=== PATIENT | female | born 1965 | race Caucasian/White ===

== ENCOUNTER 2017-09-08 07:43 | Emergency (ER) | payer OTHER ==
[2017-09-08] MEDS ORDERED: Zofran 4 MG/2 ML VIAL IV ONE (08:10)
[2017-09-08] MEDS ORDERED: TORAdol 30 mg Injection IV ONE (08:10)
[2017-09-08] MEDS ORDERED: TORAdol 30 mg Injection ONE (08:15)
--- NOTE | 2017-09-08 08:17 | ERPHSYRPT ---
- History of Present Illness Time Seen by Provider: 09/08/17 08:07 Historian: patient Exam Limitations: no limitations Patient Subjective Stated Complaint: pain right lower abd since last night,pain worse with movement, no n/v. loose stools, fever on and off for 2 weeks due to a cold Triage Nursing Assessment: pt alert, walked in, guarding abd with boland in positon, resp easy, skin w/d pink Physician History: 51-year-old white female arrives with complaint of right lower quadrant abdominal pain worse with movement associated with loose stools no nausea no vomiting . Patient does state she's had a cough off and on for 2 weeks occasional fever. Past medical history includes asthma, endometriosis. Past surgical history includes tubal , hysterectomy and bladder repair Social history occasional alcohol Timing/Duration: yesterday Activities at Onset: none Quality: cramping Abdominal Pain Onset Location: RLQ Pain Radiation: RLQ, back Severity of Pain-Max: mild Severity of Pain-Current: mild Modifying Factors: Improves With: nothing, coughing (OCCASIONAL COUGH FOR 2 WEEKS). Worsens With: analgesics, antacids, breathing, defecating, eating, exercise, lying down, movement, palpation, rest, urinating, vomiting, position, walking Associated Symptoms: fever/chills (occasional fever off and on for 2 weeks), No back, No chest pain, No diaphoresis, No fatigue, No headache, No heartburn, No loss of appetite, No nausea, No neck pain, No rash, No shortness of breath, No syncope, No vomiting, No weakness Previous symptoms: no prior history Allergies/Adverse Reactions: morphine Allergy (Verified 09/08/17 08:01) Home Medications: Albuterol Sulfate [Albuterol Sulfate Hfa] 8.5 gm DAILY 09/08/17 [History] Docusate Sodium 100 mg [Colace 100 MG] 300 mg DAILY 09/08/17 [History] Naproxen 500 mg DAILY 09/08/17 [History] Hx Influenza Vaccination/Date Given: Yes Hx Pneumococcal Vaccination/Date Given: (2 years ago) Immunizations Up to Date: Yes - Review of Systems Constitutional: Fever (occasional fever off and on for 2 weeks), No Chills, No Fatigue, No Lethargy, No Malaise, No Night Sweats, No Weakness, No Weight Loss Eyes: No Symptoms Ears, Nose, & Throat: No Symptoms, No Ear Pain, No Ear Discharge, No Hearing Changes, No Tinnitus, No Nose Pain, No Nose Congestion, No Nose Discharge, No Sinus Drainage, No Epistaxis, No Mouth Pain, No Mouth Swelling, No Loose Teeth, No Throat Pain, No Throat Swelling, No Hoarse, No Painful Swallowing, No Snoring , No Stridor Respiratory: Cough, No Cyanosis, No Dyspnea, No Dyspnea on Exertion (FRANCISCO), No Stridor, No Wheezing Cardiac: No Symptoms Abdominal/Gastrointestinal: Abdominal Pain (Right lower quadrant abdominal pain) , Diarrhea, No Nausea, No Vomiting, No Constipation, No Hematemesis, No Hematochezia, No Melena, No Dysphagia, No Appetite Changes Genitourinary Symptoms: No Dysuria Musculoskeletal: No Back Pain, No Neck Pain Skin: No Rash Neurological: No Dizziness, No Focal Weakness, No Sensory Changes Psychological: No Symptoms Endocrine: No Symptoms All Other Systems: Reviewed and Negative - Past Medical History Pertinent Past Medical History: Yes Respiratory History: Asthma Female Reproductive Disorders: Endometriosis - Past Surgical History Past Surgical History: Yes Female Surgical History: Hysterectomy Other Surgical History: BLADDER REPAIR X2 , ADHESION REMOVAL X2 - Social History Smoking Status: Never smoker Exposure to second hand smoke: No Drug Use: none Patient Lives Alone: No - Female History Hx Last Menstrual Period: hyster Hx Now: No - Nursing Vital Signs Nursing Vital Signs: Initial Vital Signs Temperature 97.6 F 09/08/17 07:49 Pulse Rate 86 09/08/17 07:49 Respiratory Rate 18 09/08/17 07:49 Blood Pressure 160/84 09/08/17 07:49 O2 Sat by Pulse Oximetry 97 09/08/17 07:49 Pain Scale Pain Intensity 4 - Physical Exam General Appearance: mild distress Eye Exam: PERRL/EOMI, eyes nml inspection Ears, Nose, Throat Exam: normal ENT inspection, pharynx normal, moist mucous membranes Neck Exam: normal inspection, non-tender, supple, full range of motion Respiratory Exam: normal breath sounds, lungs clear, No respiratory distress Cardiovascular Exam: regular rate/rhythm, normal heart sounds, normal peripheral pulses Gastrointestinal/Abdomen Exam: soft, normal bowel sounds, tenderness (right lower quadrant tenderness), No distention, No mass, No guarding, No ecchymosis, No pulsatile mass, No rebound, No hernia, No hepatomegaly, No organomegaly, No splenomegaly Back Exam: normal inspection, normal range of motion, No CVA tenderness, No vertebral tenderness Extremity Exam: normal inspection, normal range of motion, pelvis stable Neurologic Exam: alert, oriented x 3, cooperative, leasing professional II-XII nml as tested, normal mood/affect, nml cerebellar function, sensation nml, No motor deficits Skin Exam: normal color, warm, dry SpO2 Interpretation: normal (97%) SpO2: 97 Oxygen Delivery: Room Air - Course Nursing assessment & vital signs reviewed: Yes - CT Exams Abdomen/Pelvis CT Interpretation: Tele-radiologist Report (CT abdomen and pelvis with contrast impression 1 mild hepatomegaly 2. Splenomegaly major differential considerations include pleural hypertension, infectious/inflammatory condition, hematologic diseases such as anemia an extra medullary hematopoiesis, neoplasia , storage disease and sequestation, portable or splenic vein thrombosis, also in the differential but not present in this case. Antecedent granulomatous disease) Ordered Tests: Active Orders 24 hr Category Date Time Status IV Insertion STAT Care 09/08/17 08:10 Active ABDOMEN AND PELVIS W CONTRAST [CT] Stat Exams 09/08/17 08:57 Taken AMYLASE Stat Lab 09/08/17 08:16 Completed CBC W DIFF Stat Lab 09/08/17 08:16 Completed CMP Stat Lab 09/08/17 08:16 Completed LIPASE Stat Lab 09/08/17 08:16 Completed UA W/ MICROSCOPIC Stat Lab 09/08/17 08:16 Completed Medication Summary Discontinued Medications Generic Name Dose Route Start Last Admin Trade Name Freq PRN Reason Stop Dose Admin Fentanyl Citrate 50 mcg 09/08/17 08:55 09/08/17 09:05 Sublimaze 100 Mcg/2 Ml IV 09/08/17 08:56 50 mcg STAT ONE Administration Fentanyl Citrate Confirm 09/08/17 09:04 Sublimaze 100 Mcg/2 Ml Administered 09/08/17 09:05 Dose 100 mcg .ROUTE .STK-MED ONE Ketorolac Tromethamine 30 mg 09/08/17 08:10 09/08/17 08:16 Toradol 30 Mg Injection IV 09/08/17 08:11 30 mg STAT ONE Administration Ketorolac Tromethamine Confirm 09/08/17 08:15 Toradol 30 Mg Injection Administered 12/10/17 08:16 Dose 30 mg .ROUTE .STK-MED ONE Ondansetron HCl 4 mg 09/08/17 08:10 09/08/17 08:16 Zofran 4 Mg/2 Ml Vial IV 09/08/17 08:11 Not Given STAT ONE Lab/Rad Data: Laboratory Result Diagrams 09/08/17 08:16 12 08:16 Laboratory Results 09/08/17 09/08/17 09/08/17 Range/Units 08:16 08:16 08:16 WBC 10.1 (4.0-10.5) K/mm3 RBC 5.03 (4.1-5.4) M/mm3 Hgb 14.1 (12.0-16.0) gm/dl Hct 43.1 (35-47) % MCV 85.7 (78-100) fl MCH 28.0 (26-32) pg MCHC 32.7 (32-36) g/dl RDW 15.5 H (11.5-14.0) % Plt Count 323 (150-450) K/mm3 MPV 9.8 H (6-9.5) fl Gran % 56.6 (36.0-66.0) % Lymphocytes % 32.1 (24.0-44.0) % Monocytes % 6.3 (0.0-12.0) % Eosinophils % 4.8 (0.00-5.0) % Basophils % 0.2 (0.0-0.4) % Basophils # 0.02 (0-0.4) Sodium 139 (136-145) mEq/L Potassium 3.9 (3.5-5.1) mEq/L Chloride 103 (98-107) mEq/L Carbon Dioxide 27.8 (21-32) mEq/L Anion Gap 11.8 (5-15) MEQ/L BUN 14 (9-20) mg/dL Creatinine 0.88 (0.55-1.30) mg/dl Estimated GFR > 60 ML/MIN Glucose 103 (70-110) MG/DL Calcium 9.4 (8.5-10.1) mg/dL Total Bilirubin 0.40 (0.2-1.0) mg/dL AST 16 (15-37) U/L ALT 34 (12-78) U/L Alkaline Phosphatase 91 (46-116) U/L Serum Total Protein 7.9 (6.4-8.2) gm/dL Albumin 4.1 (3.4-5.0) g/dL Amylase 35 (25-115) U/L Lipase 112 (73-393) U/L Ur Collection Type VOID Urine Color YELLOW (YELLOW) Urine Appearance SLIGHTLY HAZY (CLEAR) Urine pH 5.0 (5-6) Ur Specific [place] 1.020 (1.005-1.025) Urine Protein NEGATIVE (Negative) Urine Ketones NEGATIVE (NEGATIVE) Urine Blood 50 (0-5) Viktor/ul Urine Nitrite NEGATIVE (NEGATIVE) Urine Bilirubin NEGATIVE (NEGATIVE) Urine Urobilinogen NORMAL (0-1) mg/dL Ur Leukocyte Esterase NEGATIVE (NEGATIVE) Urine Microscopic RBC 2-5 (0-2) /HPF Urine Microscopic WBC 0-2 (0-5) /HPF Ur Epithelial Cells MODERATE (FEW) /HPF Urine Bacteria FEW (NEGATIVE) /HPF Urine Culture Reflexed NO (NO) Urine Glucose NEGATIVE (NEGATIVE) mg/dL Specimen Received 09/08/17 0811 - Progress Progress: improved Progress Note: 09/08/17 08:57 51-year-old white female with history of endometriosis arrives with complaint of right lower quadrant pain symptoms since yesterday. Patient has had some loose stools no vomiting. Patient with white count 10.12-5 red cells per high-power field in her urine. Patient states that morphine made her hallucinate she is given Toradol she states this really doesn't work for her. Patient was offered Benadryl she does not want this. Will try fentanyl. CT abdomen and pelvis with contrast is ordered. 09/08/17 10:[address] of the abdomen remarkable for splenomegaly and a mild hepatomegaly appendix is within normal limits Patient's labs are essentially normal. Patient improved with fentanyl Will give her a second dosage send her home on tramadol clear fluids. Patient will need to follow-up with Dr. So. - Departure Time of Disposition: 10:37 Departure Disposition: Home Clinical Impression: Splenomegaly Abdominal pain Qualifiers: Abdominal location: right lower quadrant Qualified Code(s): R10.31 - Right lower quadrant pain Condition: Fair Critical Care Time: No Referrals: POP SO [Primary Care Provider] - Instructions: Abdominal Pain-Adult Additional Instructions: Return home. Plenty of fluids. Clear fluids only 24-48 hours if abdominal pain. Tramadol 50 mg orally every 6 hours as needed for pain. Follow-up with your family doctor. Call tomorrow to arrange an appointment. Return for acute distress or for severe symptoms. Avoid heavy contact activities. Prescriptions: Tramadol HCl 50 mg [Ultram 50 mg] 50 mg PO Q6H PRN PRN #12 tablet PRN Reason: Pain
[2017-09-08 08:19] LABS: BASOPHIL % 0.2 % (0.0-0.4); Eosinophil % 4.8 % (0.00-5.0); Granulocytes % 56.6 % (36.0-66.0); Lymphocytes % 32.1 % (24.0-44.0); Mean Cell Volume 85.7 fl (78-100); Mean Platelet Volume 9.8 fl (6-9.5); Monocytes % 6.3 % (0.0-12.0); Platelet Count 323 K/mm3 (150-450); Red Blood Count 5.03 M/mm3 (4.1-5.4); Red Cell Distribution Width 15.5 % (11.5-14.0); White Blood Count 10.1 K/mm3 (4.0-10.5)
[2017-09-08 08:31] LABS: Collection Type VOID
[2017-09-08 08:32] LABS: ADD URINE CULTURE? NO (NO); Bacteria FEW /HPF (NEGATIVE); Bilirubin NEGATIVE (NEGATIVE); Blood 50 Ery/ul (0-5); COMPLETE URINE MICROSCOPIC? YES; Epithelial Cells MODERATE /HPF (FEW); Glucose NEGATIVE (NEGATIVE); Leukocyte Esterase NEGATIVE (NEGATIVE); WBC 0-2 /HPF (0-5)
[2017-09-08 08:41] LABS: ALBUMIN 4.1 g/dL (3.4-5.0); ALKALINE PHOSPHATASE 91 U/L (46-116); ANION GAP 11.8 MEQ/L (5-15); BLOOD UREA NITROGEN 14 mg/dL (9-20); CHLORIDE 103 mEq/L (98-107); Carbon Dioxide 27.8 mEq/L (21-32); Glucose 103 MG/DL (70-110); LIPASE 112 U/L (73-393); Potassium 3.9 mEq/L (3.5-5.1); SGOT/AST 16 U/L (15-37); SGPT/ALT 34 U/L (12-78); SODIUM 139 mEq/L (136-145); Total Protein 7.9 gm/dL (6.4-8.2)
[2017-09-08] MEDS ORDERED: SUBLIMAZE 100 MCG/2 ML IV ONE ×2 (08:55→10:40)
[2017-09-08] MEDS ORDERED: SUBLIMAZE 100 MCG/2 ML ONE ×2 (09:04→10:44)
[2017-09-08 10:33] VITALS: O2SAT 97
[2017-09-08 11:17] VITALS: BP 142/76; PULSE 76
--- NOTE | 2017-09-08 20:20 | XRAY ---
Indication: Right lower quadrant pain. Multiple contiguous axial images obtained through the abdomen and pelvis using 80 cc Isovue-370 contrast only. Comparison: None Lung bases demonstrates minimal bibasilar dependent atelectasis. Heart is not enlarged. Noncontrasted stomach and bowel loops appear nonobstructed. Normal appendix. No free fluid/air. Spleen is borderline enlarged measuring 12.5 cm in greatest axial dimension with scattered calcified granulomas. Previous cholecystectomy and hysterectomy. Remaining liver, pancreas, spleen, adrenal glands, kidneys, ureters, bladder, and aorta appear unremarkable. No pathologic retroperitoneal lymphadenopathy. Osseous structures intact with with mild spinal degenerative changes greatest at the lumbosacral junction. Impression: 1. Borderline splenomegaly and evidence for old granulomatous disease. 2. Remaining CT abdomen/pelvis with contrast exam is negative. Comment: Preliminary interpretation was made by C. No critical discrepancy. CTDI 22.99
== END 2017-09-08 11:16 | disposition home or self-care (01) ==
LOC: ED 07:43
DX: R10.31 Right lower quadrant pain (principal); R16.1 Splenomegaly, not elsewhere classified; R50.9 Fever, unspecified; Z79.899 Other long term (current) drug therapy
CPT/HCPCS: 36000; 36415; 74177; 80053; 81000; 82150; 83690; 85025; 96374; 96376; 99284; J1885; J3010

== ENCOUNTER 2023-11-19 06:46 | Emergency (ER) | payer BC ==
[2023-11-19 07:28] VITALS: TEMP 97.2
[2023-11-19 07:58] LABS: Absolute Neutrophil Ct (ANC) 5.84 x10^3/uL (1.4-6.9); BASOPHIL % 0.5 % (0.0-0.4); Basophil (Absolute #) 0.05 x10^3/uL (0-0.4); Eosinophil % 3.1 % (0.00-5.0); Hemoglobin 12.8 g/dL (12.0-16.0); IMMATURE GRAN # 0.03 x10^3u/L (0.00-0.03); IMMATURE GRAN % 0.3 % (0.00-0.4); Lymphocyte (Absolute #) 2.86 x10^3/uL (1.0-4.6); Lymphocytes % 29.5 % (24.0-44.0); Mean Cell Volume 85.9 fL (78-100); Mean Corpuscular Hemoglobin 28.2 pg (26-32); Mean Corpuscular Hgb Concent. 32.8 g/dL (32-36); Mean Platelet Volume 9.9 fL (7.5-11.0); Monocyte (Absolute #) 0.61 x10^3/uL (0.0-1.3); Monocytes % 6.3 % (0.0-12.0); Neutrophil % 60.3 % (36.0-66.0); Platelet Count 371 x10^3/uL (150-450); Red Blood Count 4.54 x10^6/uL (4.1-5.4); Red Cell Distribution Width 14.2 % (11.5-14.0); White Blood Count 9.7 x10^3/uL (4.0-10.5)
[2023-11-19 08:13] LABS: ALBUMIN 4.7 g/dL (3.5-5.0); ANION GAP 11.5 MEQ/L (5-15); BILIRUBIN,TOTAL 0.3 mg/dL (0.2-1.3); Calcium 9.6 mg/dL (8.4-10.2); Creatinine 1 0.8 mg/dL (0.52-1.04); Potassium 3.6 mmol/L (3.5-5.1); Total Protein 7.7 g/dL (6.3-8.2)
[2023-11-19] MEDS ORDERED: VALIUM 10 MG/2 ML SYRINGE ONE (08:22)
[2023-11-19] MEDS ORDERED: TORAdol 30 mg Injection ONE (08:22)
[2023-11-19] MEDS: VALIUM 10 MG/2 ML SYRINGE IV ONE (08:23)
[2023-11-19] MEDS: TORAdol 30 mg Injection IV ONE (08:23)
[2023-11-19 09:05] VITALS: PULSE 70; RESP 16
--- NOTE | 2023-11-19 09:46 | ERPHSYRPT ---
- History of Present Illness Time Seen by Provider: 11/19/23 07:30 Source: patient, site interpreter Patient Subjective Stated Complaint: Pt states "I need to get my calcium checked, I am having horrible back pain and leg pain. They accidentally took out my parathyroid when they took out my thyroid and I was told if I ever had horrible back and leg pain to come to the ER. It all started Saturday. Triage Nursing Assessment: Pt presented alert and oriented X 3, skin pwd. PT u nable to sit still. PT grunts and has pain in her lower back and legs. No apparent respiratory distress. Physician History: Patient is a 57-year-old female with a history of thyroidectomy with inadvertent removal of a parathyroid gland presents to our ED for evaluation of back cramps and lower extremity spasms. Patient was advised that if she experienced the symptoms that she should get her calcium checked. Patient requesting a calcium check and pain medication for her spasms. No trauma no fever. Symptoms are constant. Symptoms are moderate in intensity. No specific worsening or improving factors. Patient voices no other complaints or concerns at this time. No fever no saddle anesthesia no lower extremity weakness no recent back procedures no trauma no change in bowel bladder function Portions of this note were created with voice recognition technology. There may be grammatical, spelling, punctuation or sound alike errors Timing/Duration: today Severity: moderate Modifying Factors: Improves With: nothing Associated Symptoms: denies symptoms Allergies/Adverse Reactions: morphine Allergy (Verified 09/08/17 08:01) Home Medications: Albuterol Sulfate [Albuterol Sulfate Hfa] 8.5 gm PO DAILY 09/08/17 [History] Docusate Sodium 100 mg [Colace 100 MG] 300 mg PO DAILY 09/08/17 [History] Levothyroxine Sodium 150 Mcg [Synthroid 150 Mcg] 150 mcg PO DAILY 11/19/23 [History] Losartan/Hydrochlorothiazide [Hyzaar 100-25 Tablet] 1 each PO DAILY 11/19/23 [History] calcitrioL [Calcitriol] 0.5 mcg PO DAILY 11/19/23 [History] Hx Tetanus, Diphtheria Vaccination/Date Given: Yes Hx Influenza Vaccination/Date Given: Yes Hx Pneumococcal Vaccination/Date Given: No (2 years ago) Immunizations Up to Date: Yes Travel Risk - International Travel Have you traveled outside of the country in past 3 weeks: No - Coronavirus Screening Are you exhibiting any of the following symptoms?: No Close contact with a COVID-19 positive Pt in past 14-21 Days: No - Vaccine Status Have you recieved a Covid-19 vaccination: No - Review of Systems Constitutional: No Symptoms, No Fever, No Chills Eyes: No Symptoms Ears, Nose, & Throat: No Symptoms Respiratory: No Symptoms, No Cough, No Dyspnea Cardiac: No Symptoms, No Chest Pain, No Edema, No Syncope Abdominal/Gastrointestinal: No Symptoms, No Abdominal Pain, No Nausea, No Vomiting, No Diarrhea Genitourinary Symptoms: No Symptoms, No Dysuria Musculoskeletal: No Symptoms, No Back Pain, No Neck Pain Skin: No Symptoms, No Rash Neurological: No Symptoms, No Dizziness, No Focal Weakness, No Sensory Changes Psychological: No Symptoms Endocrine: No Symptoms Hematologic/Lymphatic: No Symptoms Immunological/Allergic: No Symptoms All Other Systems: Reviewed and Negative - Past Medical History Pertinent Past Medical History: Yes Neurological History: No Pertinent History Cardiac History: Hypertension Respiratory History: Asthma Endocrine Medical History: Hypothyroidism Musculoskeletal History: Arthritis Female Reproductive Disorders: Endometriosis - Past Surgical History Past Surgical History: Yes Gastrointestinal: Cholecystectomy Female Surgical History: Hysterectomy Other Surgical History: BLADDER REPAIR X2 , ADHESION REMOVAL X2. thyroid removal with parathyroid. total hysterectomy - Social History Smoking Status: Never smoker Exposure to second hand smoke: No Drug Use: none Patient Lives Alone: Yes - Nursing Vital Signs Nursing Vital Signs: Initial Vital Signs Temperature 97.2 F 11/19/23 07:21 Pulse Rate 92 H 11/19/23 07:21 Respiratory Rate 20 11/19/23 07:21 Blood Pressure 141/91 11/19/23 07:21 O2 Sat by Pulse Oximetry 98 11/19/23 07:21 Pain Scale Pain Intensity [Lower Back] 8 Pain Intensity 4 - Physical Exam General Appearance: no apparent distress, alert Eye Exam: PERRL/EOMI, eyes nml inspection Ears, Nose, Throat Exam: normal ENT inspection, TMs normal, pharynx normal, moist mucous membranes Neck Exam: normal inspection, non-tender, supple, full range of motion Respiratory Exam: normal breath sounds, lungs clear, airway intact, No respi ratory distress Cardiovascular Exam: regular rate/rhythm, normal heart sounds, normal peripheral pulses Gastrointestinal/Abdomen Exam: soft, normal bowel sounds, No tenderness, No mass Back Exam: normal inspection, normal range of motion, other (Some tenderness to palpation at the lumbar paraspinal musculature. Overlying soft tissue intact), No CVA tenderness, No vertebral tenderness Extremity Exam: normal inspection, normal range of motion, pelvis stable Neurologic Exam: alert, oriented x 3, cooperative, normal mood/affect, nml cerebellar function, nml station & gait, sensation nml, No motor deficits Skin Exam: normal color, warm, dry, No rash Lymphatic Exam: No adenopathy SpO2 Interpretation: normal SpO2: 95 O2 Delivery: Room Air - Course Nursing assessment & vital signs reviewed: Yes - CT Exams Lumbar Spine CT Interpretation: Tele-radiologist Report (No new acute findings. Spine arthritis) Ordered Tests: Active Orders 24 hr Category Date Time Status LUMBAR SPINE W/O [CT] Stat Exams 11/19/23 09:23 Completed CBC W DIFF Stat Lab 11/19/23 07:57 Completed CMP Stat Lab 11/19/23 07:57 Completed UA W/RFX UR CULTURE Stat Lab 11/19/23 09:00 Completed Medication Summary Discontinued Medications Generic Name Dose Route Start Last Admin Trade Name Freq PRN Reason Stop Dose Admin Diazepam 2 mg 11/19/23 08:02 11/19/23 08:23 Diazepam 10 Mg/2 Ml Disp.Syringe IV 11/19/23 08:03 2 mg STAT ONE Administration Diazepam Confirm 11/19/23 08:22 Diazepam 10 Mg/2 Ml Disp.Syringe Administered 11/19/23 08:23 Dose 10 mg .ROUTE .STK-MED ONE Ketorolac Tromethamine 30 mg 11/19/23 08:01 11/19/23 08:23 Ketorolac Tromethamine 30 Mg/Ml Inj IV 11/19/23 08:02 30 mg STAT ONE Administration Ketorolac Tromethamine Confirm 11/19/23 08:22 Ketorolac Tromethamine 30 Mg/Ml Inj Administered 11/19/23 08:23 Dose 30 mg .ROUTE .STK-MED ONE Lab/Rad Data: Laboratory Result Diagrams 11/19/23 07:57 11/19/23 07:57 Laboratory Results 11/19/23 11/19/23 11/19/23 Range/Units 09:00 07:57 07:57 WBC 9.7 (4.0-10.5) x10^3/uL RBC 4.54 (4.1-5.4) x10^6/uL Hgb 12.8 (12.0-16.0) g/dL Hct 39.0 (35-47) % MCV 85.9 (78-100) fL MCH 28.2 (26-32) pg MCHC 32.8 (32-36) g/dL RDW 14.2 H (11.5-14.0) % Plt Count 371 (150-450) x10^3/uL MPV 9.9 (7.5-11.0) fL Gran % 60.3 (36.0-66.0) % Immature Gran % (Auto) 0.3 (0.00-0.4) % Nucleat RBC Rel Count 0.0 (0.00-0.1) % Eos # (Auto) 0.30 (0-0.5) x10^3/uL Immature Gran # (Auto) 0.03 (0.00-0.03) x10^3u/L Absolute Lymphs (auto) 2.86 (1.0-4.6) x10^3/uL Absolute Monos (auto) 0.61 (0.0-1.3) x10^3/uL Absolute Nucleated RBC 0.00 (0.00-0.01) x10^3u/L Lymphocytes % 29.5 (24.0-44.0) % Monocytes % 6.3 (0.0-12.0) % Eosinophils % 3.1 (0.00-5.0) % Basophils % 0.5 (0.0-0.4) % Absolute Granulocytes 5.84 (1.4-6.9) x10^3/uL Basophils # 0.05 (0-0.4) x10^3/uL Sodium 138 (137-145) mmol/L Potassium 3.6 (3.5-5.1) mmol/L Chloride 102 (98-107) mmol/L Carbon Dioxide 28 (22-30) mmol/L Anion Gap 11.5 (5-15) MEQ/L BUN 21 H (7-17) mg/dL Creatinine 0.80 (0.52-1.04) mg/dL Estimated GFR 87.0 ML/MIN Glucose 109 H (74-106) mg/dL Calcium 9.6 (8.4-10.2) mg/dL Total Bilirubin 0.30 (0.2-1.3) mg/dL AST 25 (14-36) U/L ALT 27 (0-35) U/L Alkaline Phosphatase 81 (38-126) U/L Serum Total Protein 7.7 (6.3-8.2) g/dL Albumin 4.7 (3.5-5.0) g/dL Urine Color Yellow (Yellow) Urine Appearance Clear (Clear) Urine pH 5.5 (4.6-8.0) Ur Specific [place] <=1.005 (1.005-1.030) Urine Protein Negative (Negative) Urine Glucose (UA) Negative (Negative) mg/dL Urine Ketones Negative (Negative) Urine Blood Trace (Negative) Urine Nitrite Negative (Negative) Urine Bilirubin Negative (Negative) Urine Urobilinogen 0.2 (0.2) mg/dL Ur Leukocyte Esterase Negative (Negative) U Hyaline Cast (Auto) NONE SEEN (0-2) /LPF Urine Microscopic RBC 0-2 (0-5) /HPF Urine Microscopic WBC 0-2 (0-5) /HPF Ur Epithelial Cells Rare (None Seen) /HPF Urine Bacteria None Seen (None Seen) /HPF Urine Culture Reflexed NO (NO) - Progress Progress: improved Progress Note: 57-year-old female presents to our ED for evaluation of leg cramps and back spasms. Patient thought it could be potentially low calcium levels. Calcium levels are normal at 9.6. Patient received Toradol and Valium for pain control. Patient states she felt better. Pain not completely resolved however patient is ready to be discharged to patient.. CT lumbar spine negative for acute pat hology. Patient advised to follow-up with a back specialist. Patient agrees to follow-up with her primary care doctor within 48 hours for evaluation. Portions of this note were created with voice recognition technology. There may be grammatical, spelling, punctuation or sound alike errors Complexity of problem addressed is moderate acute complicated No critical care time Complaints of data reviewed and analyzed is moderate. Test ordered test reviewed. Results analyzed and correlated clinically with history and physical exam. Risk of complication and or risk of morbidity/mortality of patient management is moderate. Vital stable. Time spent to discharge patient is approximately 20 minutes. Plan of care established for shared decision making. No social determinants of health present impede follow-up. Portions of this note were created with voice recognition technology. There may be grammatical, spelling, punctuation or sound alike errors 11/19/23 11:05 Counseled pt/family regarding: lab results, diagnosis, need for follow-up, rad results - Departure Departure Disposition: Home Clinical Impression: Leg cramps, Back spasm Condition: Stable Critical Care Time: No Referrals: POP MENON [Primary Care Provider] - Follow up/PCP as directed Additional Instructions: Discharge/Care Plan PEDRITO TSE was seen on 11/19/23 in the Emergency Room. The patient was counseled regarding Diagnosis,Lab results, Imaging studies, need for follow up and when to return to the Emergency Room. Prescriptions given: Discharge Note I have spoken with the patient and/or caregivers. I have explained the patient's condition, diagnosis and treatment plan based on the information available to me at this time. I have answered the patient's and/or caregiver's questions and addressed any concerns. The patient and/or caregivers have as good understanding of the patient's diagnosis, condition and treatment plan as can be expected at this point. The vital signs have been stable. The patient's condition is stable and appropriate for discharge from the emergency department. The patient will pursue further outpatient evaluation with the primary care physician or other designated or consulting physician as outlined in the discharge instructions. The patient and/or caregivers are agreeable to this plan of care and follow-up instructions have been explained in detail. The patient and/or caregivers have received these instruction. The patient/and or caregivers are aware that any significant change in condition or worsening of symptoms should prompt an immediate return to this or the closest emergency department or call 911. Prescriptions: Ketorolac Trometh 10 mg Tab [TORAdol 10 MG TABLET] 10 mg PO TID 5 Days #15 tablet
[2023-11-19 10:06] LABS: Appearance Clear (Clear); Bacteria None Seen /HPF (None Seen); Bilirubin Negative (Negative); Blood Trace (Negative); Epithelial Cells Rare /HPF (None Seen); Glucose, Urine Negative (Negative); Hyaline Casts NONE SEEN /LPF (0-2); Ketones Negative (Negative); Leukocyte Esterase Negative (Negative); Nitrite Negative (Negative); Ph 5.5 (4.6-8.0); Protein,Urine Dip Negative (Negative); RBC 0-2 /HPF (0-5); Specific Gravity <=1.005 (1.005-1.030); Urobilinogen 0.2 mg/dL (0.2); WBC 0-2 /HPF (0-5)
[2023-11-19 10:12] LABS: ADD URINE CULTURE? NO (NO)
--- NOTE | 2023-11-19 10:25 | XRAY ---
Indication: Low back pain 2 days. No known injury. Multiple contiguous axial images obtained through the lumbar spine. Sagittal and coronal reformatted images obtained. Comparison: CT abdomen/pelvis July 18, 2020. Grossly stable mild broad-based disc osteophyte complex at L5-S1 and lesser degree at L3-L5 levels. Negative for large disc herniation or spinal canal stenosis. Facets are symmetric again with mild bilateral L5-S1 degenerative facet arthropathy. Sagittal and coronal reformatted images again demonstrate normal alignment with L5-S1 disc space loss. No acute compression fracture supposition. Visualized noncontrasted soft tissues remain unremarkable. Impression: Grossly stable L3-S1 degenerative disc disease. No new/acute abnormalities.
[2023-11-19 10:40] VITALS: BP 132/91
[2023-11-19 11:01] VITALS: O2SAT 95
== END 2023-11-19 11:13 | disposition home or self-care (01) ==
LOC: ED 06:46
DX: R25.2 Cramp and spasm (principal); M62.830 Muscle spasm of back; I10 Essential (primary) hypertension; Z79.899 Other long term (current) drug therapy; Z28.310 Unvaccinated for COVID-19
CPT/HCPCS: 36415; 72131; 80053; 81001; 85025; 96374; 96375; 99284; J1885; J3360

== ENCOUNTER 2024-08-12 09:45 | Day surgery (SDC) | payer BC ==
[2024-08-12] MEDS ORDERED: Decadron 4 MG INJ IV ONE (09:46)
[2024-08-12] MEDS ORDERED: Sodium Chloride 0.9(Preservative Free) 10 ML IJ ONE (09:46)
[2024-08-12] MEDS ORDERED: DIPRIVAN 200 MG/20 ML IV ONE (11:38)
[2024-08-12] MEDS ORDERED: Hydromorphone 1 mg/ml Injection ONE (11:53)
--- NOTE | 2024-08-12 14:04 | XRAY ---
45 seconds of fluoroscopy was used in surgery for a left L4-S1 transforaminal CHANDRIKA.
== END 2024-08-12 12:40 | disposition home or self-care (01) ==
LOC: SDC-PAIN 09:45
PROVIDERS: ATTEND Psychiatry & Neurology Pain Medicine
DX: M54.16 Radiculopathy, lumbar region (principal)
CPT/HCPCS: 64483; 64484; 72100; 77003; J1100; J1171; J2704; Q9966